=== PATIENT | male | born 1950 | race Native Hawaiian/Other Pacific Islander ===

== ENCOUNTER → 2016-08-20 | Outpatient (CLI) | payer SELFPAY ==
--- NOTE | 2016-08-22 07:43 | ECHOCARDIOGRAPHY REPORT ---
PROCEDURE PHYSICIAN: RAÚL CLAYTON DATE OF PROCEDURE: 08/20/2016 TWO DIMENSIONAL ECHOCARDIOGRAM REPORT PRIMARY PHYSICIAN: OTHER PHYSICIAN: REFERRING PHYSICIAN: [facility] ORDERING PHYSICIAN: INDICATION FOR THE PROCEDURE: Chest pain. MEASUREMENTS DERIVED VALUES LV DIAMETER (LAX) NORMALS NORMALS Diastolic 4.1 (3.6-5.2) Eject. Fract. 60% (60%+/-6%) Systolic (2.3-3.9) Diastolic Vol. % Shortening (0.22-0.42) Systolic Vol. Aortic Root IVS THICKNESS Diastolic 1.1 (0.6-1.1) LVPW THICKNESS Diastolic 1.1 (0.6-1.1) LA DIAMETER Systolic 3.2 (2.1-3.7) FINDINGS: 1. Technical quality is good. 2. The left ventricle is normal in size with normal contractility. Systolic function appeared to be normal. Estimated ejection fraction 60%. 3. The left atrium is normal in size. No clot or thrombus were seen within the left atrium. 4. The right atrium and right ventricle are normal in size. No clot or thrombus were seen within the right side. 5. Mitral valve is normal in morphology with mild mitral regurgitation noted by color Doppler flow. No mitral valve prolapse. No mitral valve stenosis. 6. Aortic valve is trileaflet with normal opening and closing pattern. No significant aortic stenosis or regurgitation was seen. 7. Tricuspid valve is normal in morphology with mild tricuspid regurgitation noted by color Doppler flow. Doppler across tricuspid valve estimated pulmonary artery pressure of 24+ right atrial pressure. 8. Pulmonic valve is functioning normally. 9. No pericardial effusion. IN CONCLUSION: 1. Normal left ventricular size and systolic function. Estimated ejection fraction is 60%. 2. Mild mitral and tricuspid regurgitation. 3. Estimated pulmonary artery pressure of 30 mmHg. 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
== END ==
LOC: CARD 12:33
PROVIDERS: ATTEND Internal Medicine Cardiovascular Disease
DX: R07.9 Chest pain, unspecified (principal)
CPT/HCPCS: 93306

== ENCOUNTER → 2016-08-28 | Outpatient (CLI) | payer MEDICARE ==
[~2016-08-28] MED LIST: CATHETER FLUSH 10 ML SYR IV PRN; REGADENOSON 0.4 MG/5 ML SYR (LEXISCAN) IV ONE
[2016-08-28 09:42] VITALS: BP 146/98
--- NOTE | 2016-08-29 10:00 | STRESS TEST ---
PROCEDURE PHYSICIAN: RAÚL CLAYTON LEXISCAN MYOVIEW STRESS TEST REPORT DATE OF PROCEDURE: 08/28/2016 INDICATION: Chest pain. Baseline heart rate is 67, baseline blood pressure: 149/85. Baseline EKG: Sinus rhythm with no ischemic changes. SUMMARY: The patient was initially scheduled for an exercise stress test. He was unable to exercise. The test was converted to Lexiscan Myoview stress test. The patient 10.16 mCi of technetium 99 Myoview and the resting images were obtained. Then the patient received 0.4 mg of Lexiscan followed by 31.1 mCi of technetium 99 Myoview. Throughout the test, there were no EKG changes. The resting and stress images were reviewed and compared in the short axis, horizontal long axis, and vertical long axis views. Review of the images showed diaphragmatic attenuation affecting the quality of the images. There is no significant ischemia or infarction on SPECT images. SSS is 4, SDS 4, TID value 1.0. On the gated images, the left ventricle appeared to be normal size with normal contractility. Calculated ejection fraction 76%. CONCLUSION: 1. The patient tolerated Lexiscan well. 2. Diaphragmatic attenuation affecting the quality of the images with typical male pattern. No significant ischemia or infarction on SPECT images. 3. Normal left ventricular size with normal contractility. Calculated ejection fraction 76%. Job ID: [id number] Dictated Date: 08/28/2016 16:30:40 Giver Date: 08/29/2016 09:57:04 / camille
== END ==
LOC: EDUNIT# 08:00 → CARD 08:14
PROVIDERS: ATTEND Internal Medicine Cardiovascular Disease
DX: R07.9 Chest pain, unspecified (principal)
CPT/HCPCS: 78452; 93017

== ENCOUNTER 2022-10-17 05:39 | Outpatient (CLI) | payer MEDICARE ==
[~2022-10-17] VITALS: Ht 167.7 cm; Wt 84.9 kg
== END 2022-10-21 17:05 | disposition home or self-care (01) ==
LOC: PREOP 05:39
PROVIDERS: ATTEND Specialist
DX: Z01.818 Encounter for other preprocedural examination (principal)

== ENCOUNTER 2022-10-25 09:50 | Day surgery (SDC) | payer MEDICARE ==
[~2022-10-25] VITALS: Ht 167.7 cm; Wt 84.9 kg
[2022-10-25] MEDS ORDERED: MIDAZOLAM 2 MG/2 ML (VERSED) VIAL ONE (09:59)
[2022-10-25] MEDS ORDERED: POVIDONE (BETADINE) OPHTH SOLN 5% 30 ML OP ONE (10:00)
[2022-10-25] MEDS ORDERED: MOXIFLOXACIN OPHTH SOLN 5 MG/ML 0.3 ML SYRINGE OP ONE (10:00)
[2022-10-25] MEDS ORDERED: TIMOLOL 0.5% (CATARACTS) 0.3 ML BTL OU PRN (10:00)
[2022-10-25] MEDS: TETRACAINE 0.5% OPHTH SOLN 4 ML BTL (SINGLE DOSE ONLY) OU PRN ×4 (10:01→10:17)
[2022-10-25] MEDS: TROPICAMIDE 1% OPH SOLN (MYDRIACYL) 15 ML BTL OP SCH ×3 (10:07→10:17)
[2022-10-25] MEDS: PHENYLEPHRINE 10% OPHTH (NEO-SYN) 5 ML BTL OU SCH ×3 (10:07→10:17)
--- NOTE | 2022-10-25 10:16 | Ophthalmologist Pre-Op Note ---
Pre-Operative Progress Note H&P Reviewed The H&P was reviewed, patient examined and no changes noted. Date H&P Reviewed: Oct 25, 2022 Time H&P Reviewed: 10:16 Pre-Op Dx Cataract, Left Eye BRIONNA RAMOS MD Oct 25, 2022 10:16
[2022-10-25 10:17] VITALS: BP 152/93
--- NOTE | 2022-10-25 11:04 | Ophthalmology Operative Report ---
Cataract removal/placement IOL PREOPERATIVE DIAGNOSIS: Cataract Left Eye POSTOPERATIVE DIAGNOSIS: Cataract Left Eye PROCEDURE: Cataract removal and placement of posterior chamber implant, left eye SURGEON: Phillip Ramos ANESTHESIA: Topical with sedation COMPLICATIONS: None ESTIMATED BLOOD LOSS: Minimal DESCRIPTION OF PROCEDURE: After proper informed consent was obtained, the patient, a 72 male, was taken to the Operating Room and the left eye was anesthetized with tetracaine. The left eye was then prepped and draped in the usual manner. A wire lid speculum was placed. A paracentesis was made at the left hand position. Preservative free lidocaine was injected into the anterior chamber followed by viscoelastic. A clear corneal incision was made in the temporal position. A capsulorrhexis was preformed and the central nuclear and cortical material were removed. The posterior capsule was polished and an Ian 18.5 AU00T0 was placed into the capsular bag. The residual viscoelastic was aspirated and balanced saline solution was injected into the anterior chamber. Moxifloxacin was injected into the anterior chamber. The wound was checked and found to be water tight. The patient tolerated the procedure well without complications. PHILLIP RAMOS MD Oct 25, 2022 11:04
[2022-10-25 11:05] VITALS: BP 144/86
--- NOTE | 2022-10-25 12:07 | Anesthesia-General Post-Op ---
MAC Patient Condition Mental Status/LOC: Same as Preop Cardiovascular: Satisfactory Nausea/Vomiting: Absent Respiratory: Satisfactory Pain: Controlled Complications: Absent Post Op Complications Complications None Follow Up Care/Instructions Patient Instructions None needed. Anesthesiology Discharge Order Discharge Order Patient was doing well this morning after the procedure with no complaints, stable vital signs, no apparent adverse anesthesia problems. No complications reported per nursing. RUSS BRUMFIELD DO Oct 25, 2022 12:07
[2022-10-25] MEDS ORDERED: acetaZOLAMIDE ER 500 MG CAP (DIAMOX SEQUELS) PO ONE (12:15)
== END 2022-10-25 11:08 | disposition home or self-care (01) ==
LOC: SDC 09:50
PROVIDERS: ATTEND Specialist
DX: H25.9 Unspecified age-related cataract (principal)
CPT/HCPCS: 66984; V2632

== ENCOUNTER 2022-11-21 05:38 | Outpatient (CLI) | payer MEDICARE | END 2022-11-27 13:31 | disposition home or self-care (01) | LOC: PREOP 05:38 | PROVIDERS: ATTEND Specialist | DX: Z01.818 Encounter for other preprocedural examination (principal); H25.11 Age-related nuclear cataract, right eye ==

== ENCOUNTER 2022-11-29 09:52 | Day surgery (SDC) | payer MEDICARE ==
[~2022-11-29] VITALS: Ht 167.7 cm; Wt 84.9 kg
[2022-11-29] MEDS ORDERED: MOXIFLOXACIN OPHTH SOLN 5 MG/ML 0.3 ML SYRINGE OP ONE (10:00)
[2022-11-29] MEDS ORDERED: MIDAZOLAM 2 MG/2 ML (VERSED) VIAL ONE (10:00)
[2022-11-29] MEDS ORDERED: POVIDONE (BETADINE) OPHTH SOLN 5% 30 ML OP ONE (10:00)
[2022-11-29] MEDS ORDERED: TIMOLOL 0.5% (CATARACTS) 0.3 ML BTL OU PRN (10:00)
[2022-11-29] MEDS: TETRACAINE 0.5% OPHTH SOLN 4 ML BTL (SINGLE DOSE ONLY) OU PRN ×4 (10:06→10:24)
[2022-11-29] MEDS: PHENYLEPHRINE 10% OPHTH (NEO-SYN) 5 ML BTL OU SCH ×3 (10:12→10:24)
[2022-11-29] MEDS: TROPICAMIDE 1% OPH SOLN (MYDRIACYL) 15 ML BTL OP SCH ×3 (10:12→10:24)
[2022-11-29 10:14] VITALS: BP 137/77
--- NOTE | 2022-11-29 10:35 | Ophthalmologist Pre-Op Note ---
Pre-Operative Progress Note H&P Reviewed The H&P was reviewed, patient examined and no changes noted. Date H&P Reviewed: Nov 29, 2022 Time H&P Reviewed: 10:35 Pre-Op Dx Cataract, Right Eye BRIONNA RAMOS MD Nov 29, 2022 10:35
--- NOTE | 2022-11-29 11:00 | Ophthalmology Operative Report ---
Cataract removal/placement IOL PREOPERATIVE DIAGNOSIS: Cataract Right Eye POSTOPERATIVE DIAGNOSIS: Cataract Right Eye PROCEDURE: Cataract removal and placement of posterior chamber implant, right eye SURGEON: Phillip Ramos ANESTHESIA: Topical with sedation COMPLICATIONS: None ESTIMATED BLOOD LOSS: Minimal DESCRIPTION OF PROCEDURE: After proper informed consent was obtained, the patient, a 72 male, was taken to the Operating Room and the right eye was anesthetized with tetracaine. The right eye was then prepped and draped in the usual manner. A wire lid speculum was placed. A paracentesis was made at the left hand position. Preservative free lidocaine was injected into the anterior chamber followed by viscoelastic. A clear corneal incision was made in the temporal position. A capsulorrhexis was preformed and the central nuclear and cortical material were removed. The posterior capsule was polished and Ian 19.5 AU00T0 IOL was placed into the capsular bag. The residual viscoelastic was aspirated and balanced saline solution was injected into the anterior chamber. Moxifloxacin was injected into the anterior chamber. The wound was checked and found to be water tight. The patient tolerated the procedure well without complications. PHILLIP RAMOS MD Nov 29, 2022 11:00
[2022-11-29 11:03] VITALS: BP 109/63
[2022-11-29] MEDS ORDERED: acetaZOLAMIDE ER 500 MG CAP (DIAMOX SEQUELS) PO ONE (12:15)
--- NOTE | 2022-11-29 13:08 | Anesthesia-General Post-Op ---
MAC Patient Condition Mental Status/LOC: Same as Preop Cardiovascular: Satisfactory Nausea/Vomiting: Absent Respiratory: Satisfactory Pain: Controlled Complications: Absent Post Op Complications Complications None Follow Up Care/Instructions Patient Instructions None needed. Anesthesiology Discharge Order Discharge Order Patient is doing well, no complaints, stable vital signs, no apparent adverse anesthesia problems. No complications reported per nursing. JAYDEN CHARLTON CRNA Nov 29, 2022 13:08
== END 2022-11-29 11:07 | disposition home or self-care (01) ==
LOC: SDC 09:52
PROVIDERS: ATTEND Specialist
DX: H25.9 Unspecified age-related cataract (principal)
CPT/HCPCS: 66984; V2632

== ENCOUNTER 2022-12-05 23:47 | Emergency (ER) | payer MEDICARE ==
[2022-12-06] MEDS ORDERED: TETANUS,DIPTH,PERTUSS P/F (BOOSTRIX) 0.5 ML VIAL IM ONE (00:15)
--- NOTE | 2022-12-06 00:58 | ED Fall/Injury ---
General Chief Complaint: Trauma-Non Activation Stated Complaint: FALL,HEAD,NOSE & RT WRIST & LEG PAIN Nursing Triage Note: TO ED VIA POV AND AMBULATORY TO ROOM 9 WITH DAUGHTER WHO HELPS WITH TRANSLATION NEEDED. 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 Source: patient (SPEAKS VERY LIMITED SPANISH), other (DAUGHTER IS ENGAGEMENT LEAD) Exam Limitations: language barrier History of Present Illness Date Seen by Provider: Dec 06, 2022 Time Seen by Provider: 00:07 Initial Comments PT ARRIVES VIA POV FROM HOME, WITH DAUGHTER AROUND 2300 TONIGHT, PT WAS WALKING DOWN 3 CARPETED STEPS, AND FELL, LANDING FACE FIRST ON CEMENT FLOOR ( PT IS WEARING SOCKS WITH "FLIP FLOP" TYPE SANDALS, AND TOES DO NOT EXTEND TO THE END OF THE SANDAL) PT WAS WEARING GLASSES, BUT THEY DID NOT BREAK. NO LOSS OF CONSCIOUSNESS PT C/O PAIN TO FACE AND NOSE-HAS ABRASIONS TO FOREHEAD, AND NOSE, INCLUDING BRIDGE OF NOSE HE DID NOT HAVE A NOSE BLEED NO INJURY TO MOUTH, LIPS OR CHIN OR JAW. HE ALSO C/O PAIN TO DORSUM OF RIGHT WRIST. HE HAS AN ABRASION TO RIGHT MID SCHUMACHER. NO PAIN WITH WALING NO HIP OR KNEE OR FOOT/ANKLE PAIN NO CHANGE IN MENTATION DENIES NECK OR BACK PAIN DENIES CHEST OR ABDOMINAL PAIN DENIES SHORTNESS OF BREATH DENIES NAUSEA/VOMITING DENIES PARESTHESIAS OR MOTOR DEFICITS NO HEADACHE NO DIZZINESS OR SYNCOPE NO CHANGES IN HEARING OR VISION--PT RECENTLY HAD BILATERAL CATARACT SURGERY--LEFT EYE 10/25/22 AND RIGHT EYE 11/29/22 PT IS LEFT HANDED NO PRIOR PROBLEMS OR INJURIES TO RIGHT ARM OR WRIST OR HAND PT IS NOT UP TO DATE ON TETANUS VACCINATION PT DENIES ANY MEDICAL PROBLEMS, AND IS NOT ON ASPIRIN OR BLOOD THINNERS. PCP: CHANTEL-SY Allergies and Home Medications Allergies Coded Allergies: No Known Drug Allergies (Unverified , 12/06/22) Patient Home Medication List Home Medication List Reviewed: Yes Review of Systems Review of Systems Constitutional: no symptoms reported Eyes: No Symptoms Reported Ears, Nose, Mouth, Throat: see HPI Respiratory: no symptoms reported Cardiovascular: no symptoms reported Gastrointestinal: no symptoms reported Genitourinary: no symptoms reported Musculoskeletal: see HPI Skin: see HPI Psychiatric/Neurological: No Symptoms Reported Past Hcfyjwe-Oybtyo-Btehgx Hx Patient Social History Tobacco Use?: No Substance use?: No Alcohol Use?: No Immunizations Up To Date Tetanus Booster (TDap): Unknown Past Medical History Surgeries: Yes (L EYE CATARACT 10/25/22; R EYE CATARACT 11/29/22) Eye Surgery Respiratory: No Cardiac: No Neurological: No Genitourinary: No Gastrointestinal: No Musculoskeletal: No Endocrine: No HEENT: Yes (S/P BILATERAL CATARACT SURGERY) Cataract Cancer: No Psychosocial: No Integumentary: No Blood Disorders: No Physical Exam Vital Signs Vital Signs - First Documented Capillary Refill : Less Than 3 Seconds Height, Weight, BMI Height: '" Weight: lbs. oz. kg; BMI Method: General Appearance: WD/WN, no apparent distress HEENT: PERRL/EOMI, TMs normal, pharynx normal, other (POOR DENTITION WITH MISSING TEETH AND EXTENSIVE DECAY. NO INJURY TO LIPS OR MOUTH. NO MANDBILAR SWELLING OR TENDERNESS OR DEFORMITY OR MAL-OCCLUSION. ABRASIONS TO FOREHEAD, FROM BRIDGE OF NOSE DOWN TO TIP OF NOSE. NARES ARE CLEAR--NO BLEEDING, NO DEFORMITY, NO EVIDENCE OF SEPTAL HEMATOMA.THERE IS TENDERNESS TO NOSE. NO DEFORMITY OF NOSE. NO PERIORBITAL TENDERNESS OR ECCHYMOSIS OR SWELLING. ) Neck: non-tender, full range of motion, supple, normal inspection Cardiovascular: normal peripheral pulses, regular rate, rhythm, no murmur Respiratory: chest non-tender, normal breath sounds, no respiratory distress, no accessory muscle use Peripheral Pulses: 2+ Dorsalis Pedis (R), 2+ Left Dors-Pedis (L), 2+ Radial Pulses (R), 2+ Radial Pulses (L) Gastrointestinal: normal bowel sounds, non tender, soft Back: normal inspection, no CVA tenderness, no vertebral tenderness Extremities: no pedal edema, no calf tenderness, normal capillary refill, other (DORSAL ASPECT OF RIGHT WRIST, WITH TENDERNESS AND SLIGHT SWELLING. NO DEFORMITY. FULL ROM OF HAND, WRIST AND FINGERS, WITH SENSORY AND VASCULAR INTACT. NO TENDERNESS ANYWHERE ELSE ON ARMS. THERE IS MINOR ABRASION TO MID RIGHT ANTERIOR SCHUMACHER. NO BONY TENDERNESS, FULL ROM OF ENTIRE LEG, FULL WEIGHT BEARING WITHOUT DIFFICULTY. SENSORY/VASCULAR INTACT. NO HIP OR KNEE OR ANKLE TENDERESS. 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, no motor/sensory deficits, alert, normal mood/affect, oriented x 3 Skin: normal color (DARK SKINNED), warm/dry, other (ABRASIONS NOTED ABOVE) [place] Coma Score Best Eye Response: (4) Open Spontaneously Best Verbal Response: (5) Oriented Best Motor Response: (6) Obeys Commands [place] Total: 15 Procedures/Interventions Splinting and Joint Reduction : Splints: Shepherd Wrist Progress/Results/Core Measures Results/Orders My Orders Orders - KENNETH CONWAY DO Monitor-Rhythm Ecg Trace Only (12/06/22 00:14) Ct Head/Face/Cervical Wo (12/06/22 00:14) Chest 1 View, Ap/Pa Only (12/06/22 00:14) Wrist, Right, 3 Views Or More (12/06/22 00:14) Tibia/Fibula, Right, 2 Views (12/06/22 00:14) Dipht,Pertuss(Acell),Tet Adult (Boostrix (12/06/22 00:15) Wound Dressing-Ed (12/06/22 00:14) Wrist-Shepherd (12/06/22 01:46) Medications Given in ED Current Medications Medications Dose Ordered Sig/Ute Route Start Time Stop Time Status Last Admin Dose Admin Diphtheria/ Tetanus/Acell Pertussis 0.5 ml ONCE ONCE IM 12/06/22 00:15 12/06/22 00:16 DC 12/06/22 01:28 0.5 ML Vital Signs/I&O 12/06/22 12/06/22 12/06/22 00:15 00:15 01:58 Temp 36.6 36.6 Pulse 87 78 Resp 16 16 B/P (MAP) 152/88 (109) 138/79 Pulse Ox 98 99 O2 Delivery Room Air Room Air Room Air Blood Pressure Mean: 109 Progress Progress Note : Progress Note DPT VACCINATION GIVEN WOUNDS CLEANSED AND DRESS RIGHT WRIST SPLINT APPLIED REVIEWED TEST RESULTS, AND DISCUSSED POSSIBILITY OF SUBTLE FRACTURE TO WRIST AND NEED FOR FOLLOW UP WITH ORTHOPEDIC SURGEON NEXT WEEK FOR FURTHER EVALUATION, DISCUSSED WOUND CARE AND SYMPTOMATIC TREATMENT, MEDICATIONS, RETURN PRECAUTIONS. REVIEWED PRIOR RECORDS--ONLY VISITS WERE FOR RECENT OUTPATIENT CATARACT SURGERIES Diagnostic Imaging Comments XRAYS--ALL PENDING RADIOLOGIST REVIEW CXR--NO ACUTE PROCESS. RIGHT WRIST--ARTHRITIC CHANGES, QUESTIONABLE INTRA-ARTICULAR FRACTURE OF DISTAL RADIUS RIGHT TIB-FIB--NO ACUTE PROCESS CT HEAD / MAXILLOFACIALS /CERVICAL SPINE--PER [facility] VIA FAX AT [id number] Reviewed: Reviewed by Me Departure Impression Primary Impression: Fall down stairs Additional Impressions: Minor head injury without loss of consciousness Facial contusion Abrasion of face and extremities Right wrist injury Contusion of right lower leg Aixxgdxrmo-bkaetcqpv-bghhocz (DPT) vaccination administered at current visit Disposition: HOME, SELF-CARE Condition: Stable Departure-Patient Inst. Decision time for Depature: 01:48 Referrals: [facility] (PCP/Family) Primary Care Physician NAEEM MONIQUE MD Patient Instructions: Caring for Your Splint, Common Wrist Injuries ED, Diphtheria and Tetanus Toxoids, and Acellular Pertussis Vaccine, Head Injury in Adults (DC), Skin Abrasions (DC) Add. Discharge Instructions: WEAR WRIST SPLINT AT ALL TIMES, YOU MAY REMOVE IT TO BATHE, THEN PUT IT BACK ON AFTER BATHING ICE TO SORE AREAS AT 20 MINUTE INTERVALS CLEAN WOUNDS TWICE A DAY WITH ANTIBACTERIAL SOAP AND WATER, APPLY ANTIBIOTIC OINTMENT AND FRESH DRESSINGS TWICE A DAY TYLENOL AND MOTRIN NEEDED FOR PAIN FOLLOW UP WITH DR. MONIQUE, ORTHOPEDIC SURGEON, NEXT WEEK FOR FURTHER EVALUATION OF YOUR WRIST. RETURN TO ER IF YOUR SYMPTOMS WORSEN All discharge instructions reviewed with patient and/or family. Voiced understanding. KENNETH CONWAY DO Dec 06, 2022 00:58
[2022-12-06 01:58] VITALS: BP 138/79
--- NOTE | 2022-12-06 07:32 | Diagnostic Imaging Report ---
EXAMINATION: Chest radiograph, portable AP view. DATE: 12/06/2022 1:12 AM. INDICATION: 72-year-old male, fall. Chest pain. COMPARISON: None. FINDINGS: The heart size and mediastinal contours are unremarkable. There is no identified pneumothorax. There is no large pleural effusion. There is no identified focal airspace consolidation. IMPRESSION: No identified acute cardiopulmonary abnormality. Dictated by: Dictated on workstation # [id number]
--- NOTE | 2022-12-06 07:35 | Diagnostic Imaging Report ---
EXAMINATION: Right wrist radiographs, 3 views. COMPARISON: None. HISTORY: 72-year-old male, right wrist pain. FINDINGS: There are limitations of the exam relating to the tiana-nz-zjth of imaging as well as relating to positioning of the patient. There is advanced osteoarthritis involving the first carpometacarpal joint. There is first interphalangeal arthritis. There is no identified acute fracture. There is no radiopaque foreign body. IMPRESSION: No identified acute bony abnormality of the right wrist. Dictated by: Dictated on workstation # [id number]
--- NOTE | 2022-12-06 07:36 | Diagnostic Imaging Report ---
EXAMINATION: Right tibia and fibula radiographs, 2 views, 4 images. COMPARISON: None. HISTORY: 72-year-old male, right tibia and fibula pain after fall. FINDINGS: There is no identified acute fracture. There is degenerative type enthesopathy at the Achilles tendon insertion. There is no knee joint effusion. There is no radiopaque foreign body. IMPRESSION: No identified acute bony abnormality of the right tibia or fibula. Dictated by: Dictated on workstation # [id number]
--- NOTE | 2022-12-06 08:30 | Diagnostic Imaging Report ---
PROCEDURE: CT head, face, and cervical spine without contrast. TECHNIQUE: Multiple contiguous axial images were obtained through the head, neck, and facial bones without the use of intravenous contrast. Sagittal and coronal reformations through the cervical spine and facial bones were also performed. Auto Exposure Controls were utilized during the CT exam to meet ALARA standards for radiation dose reduction. INDICATION: Fall. No prior studies are available for comparison. CT HEAD: The ventricles and sulci are appropriate for the patient's age. No sulcal effacement or midline shift is identified. No acute intra-axial or extra-axial hemorrhage is detected. Cisterns are patent. Visualized paranasal sinuses demonstrate some mild mucosal thickening right maxillary sinus. IMPRESSION: No acute intracranial process identified. CT cervical spine: There is slight reversal of normal cervical lordotic curvature. There is multilevel degenerative disc disease noted with significant disc space narrowing and marginal spurring at all levels. There is multilevel facet arthropathy as well. No fractures are seen. Prevertebral tissues are within normal limits. Odontoid is intact. IMPRESSION: Severe cervical spondylosis. No acute bony abnormality is detected. CT face: The mandible is intact. Zygomatic arches intact. Maxillary sinus vasquez as well as nasal bones and orbital vasquez are intact and no fractures are seen. There is some mucosal thickening of the right maxillary sinus. Mastoids are well aerated. IMPRESSION: No facial bone fractures detected. Dictated by: Dictated on workstation # [id number]
== END 2022-12-06 01:58 | disposition home or self-care (01) ==
LOC: EDUNIT# 23:47 → ER 23:52
DX: S09.90XA Unspecified injury of head, initial encounter (principal); S80.11XA Contusion of right lower leg, initial encounter; S00.33XA Contusion of nose, initial encounter; S00.83XA Contusion of other part of head, initial encounter; S69.91XA Unspecified injury of right wrist, hand and finger(s), initial encounter; Z23 Encounter for immunization; W10.9XXA Fall (on) (from) unspecified stairs and steps, initial encounter
CPT/HCPCS: 70450; 70486; 71045; 72125; 73110; 73590; 90715; 93041